=== PATIENT | female | born 1985 | race African-American/Black ===

== ENCOUNTER 2017-08-07 23:32 | Emergency (ER) | payer OTHER ==
[~2017-08-07] VITALS: Ht 172.7 cm; Wt 65.3 kg
[~2017-08-07 23:32] MED LIST: AMOXICILLIN500 MG PO; ATARAX,VISTARIL50 MG PO; CEPHALEXIN500 MG PO; HYDROCODON-ACE1 EAC7 PO; IRON325 M1 PO; KEFLEX500 MG PO; NAPROSYN500 MG PO; NO HOME MEDS; NOHOMEMEDS; PYRIDIUM200 MG PO; ROBITUSSIN AC,T10 ML PO
[2017-08-08 01:08] LABS: HEMATOCRIT 34.9 % (36.0-46.0); MCH 30.9 PG (29.0-34.0); MCHC 31.8 G/DL (30.0-36.0); MCV 97.2 FL (83-99); MEAN PLAT.VOLUME 10.1 uM^3 (9.5-12.4); PLATELET COUNT 224 K/uL (156-360); RBC DIS.WIDTH-CV 13.7 % (11.8-14.6); RBC DIS.WIDTH-SD 49.2 % (39-53); RED BLOOD COUNT 3.59 M/uL (3.80-5.20); WHITE BLOOD COUNT 8.5 K/uL (4.1-10.2)
[2017-08-08 01:22] LABS: CHLORIDE 105 mEq/L (99-109); POTASSIUM 4.1 mEq/L (3.7-5.4); SODIUM 141 mEq/L (136-147)
[2017-08-08 01:24] LABS: GLUCOSE 73 mg/dL (70-99)
[2017-08-08 01:25] LABS: ANION GAP 10 MEQ/L (2-14)
[2017-08-08 01:26] LABS: TOTAL BILIRUBIN 0.2 mg/dL (0.0-1.0)
[2017-08-08 01:27] LABS: ALKALINE PHOSPHATASE 79 IU/L (3-129); GFR ESTIMATE (CALCULATED) > 59 mL/min/
[2017-08-08 01:29] LABS: UREA NITROGEN (BUN) 20 mg/dL (9-23)
[2017-08-08 01:31] LABS: LIPASE 44 U/L (1.0-51.0)
[2017-08-08 01:38] LABS: QUANTITATIVE HCG < 4.0 MIU/ML
[2017-08-08] MEDS ORDERED: ANUSOL-HC21 GM PR (03:44)
[2017-08-08 04:25] VITALS: BP 109/80
== END 2017-08-08 04:25 | disposition home or self-care (01) ==
LOC: EME 23:32 → RME 23:32
PROVIDERS: Emergency Medicine
DX: K64.9 Unspecified hemorrhoids (principal); F17.200 Nicotine dependence, unspecified, uncomplicated
CPT/HCPCS: 80053; 81003; 83690; 84702; 85027; 99281; 99284